=== PATIENT | female | born 1930 | race Caucasian/White ===

== ENCOUNTER → 2016-07-07 | Outpatient (CLI) | payer MEDICARE, OTHER ==
[~2016-07-07] MED LIST: BACITAB3 PO; BRIM1OPD OU; BUPIVACAINE HCL 0.5% 10 ML VIAL As Ordered ONE; CALC25TA PO; CONRAY-43 43% 50ML VIAL (Q9960) As Ordered ONE; DETR2CAP PO; DIOV160T6 PO; ELIQ2.5T PO; LIPI20TA PO; MAGN1TAB25 PO; MICR10CA PO; NORV5TAB PO; PATA2.5S OU; PRIL20CA PO; TENO1TAB4 PO; TRAM50TA2 PO; TYLE325T5 PO; VITMTA PO; XALA0.002 OU; desyrel PO; methylPREDNISolone SUSP 40 MG/ML (DEPO-medrol) VIAL (J1030) As Ordered ONE
--- NOTE | 2016-07-08 17:12 | REP ---
Left tibiotalar injection The procedure was performed under the direct supervision of Dr. Reynoso. The benefits and risks including but not limited to pain infection and bleeding and anaphylaxis were explained to the patient and informed consent was obtained. The left tibiotalar joint space was localized using fluoroscopic guidance. The skin was prepped and draped in a sterile fashion. 1% lidocaine was used as a local anesthetic. Using fluoroscopic guidance a 22-gauge needle was inserted and advanced into the joint. 0.5 ml of Conray 43 was injected to verify placement. 4 ml of a solution containing 2 ml of 0.5% Marcaine and 2 ml of Depo Medrol 40 mg was injected. The needle was then removed. The patient tolerated the procedure well and there were no immediate complications. 3 seconds of fluoro time was utilized for this procedure. Reviewed by KENIA York 07/07/2016 04:11 PSigned by Gonzalo Reynoso MD 07/08/2016 05:03 P
== END ==
LOC: M RADPRO 10:47
PROVIDERS: ATTEND Physician Assistant
DX: M25.572 Pain in left ankle and joints of left foot (principal)
CPT/HCPCS: 20606; 77002; J1030; Q9960

== ENCOUNTER → 2016-10-15 | Outpatient (CLI) | payer MEDICARE, OTHER ==
[~2016-10-15] MED LIST changes: -PRIL20CA PO; +PRIL20CA9 PO
--- NOTE | 2016-10-15 16:42 | REP ---
LEFT ANKLE INJECTION: The procedure was performed under the direct supervision of Dr. Reynoso. The benefits and risks including, but not limited to pain, infection, bleeding and anaphylaxis were explained to the patient and informed consent was obtained. The right tibiotalar joint space was localized using fluoroscopic guidance. The skin was prepped and draped in a sterile fashion. 1% lidocaine was used as a local anesthetic. Using fluoroscopic guidance a 22-gauge needle was inserted and advanced into the joint. 0.5 mL of Conray-43 was injected to verify placement. 4 ml of a solution containing 2 mL of 0.5% Marcaine and 2 mL of Depo-Medrol 40 mg was injected. The needle was then removed. The patient tolerated the procedure well and there were no immediate complications. 2 seconds of fluoroscopy time was utilized for this procedure. Reviewed by KENIA York 10/15/2016 05:08 PEdited and Signed by Gonzalo Reynoso MD 10/16/2016 03:31 P
== END ==
LOC: M RADPRO 08:26
PROVIDERS: ATTEND Orthopaedic Surgery
DX: M25.572 Pain in left ankle and joints of left foot (principal); M19.072 Primary osteoarthritis, left ankle and foot
CPT/HCPCS: 20605; 77002; J1030; Q9960

== ENCOUNTER → 2017-01-21 | Outpatient (CLI) | payer MEDICARE, OTHER ==
[~2017-01-21] MED LIST changes: +BACITAB PO; -BACITAB3 PO; -XALA0.002 OU; +XALA0.007 OU
--- NOTE | 2017-01-21 14:05 | REP ---
LEFT TIBIOTALAR JOINT INJECTION: The procedure was performed under the direct supervision of Dr. Poole. The benefits and risks including but not limited to pain, infection, bleeding, and anaphylaxis were explained to the patient and informed consent was obtained. The left tibiotalar joint space is localized using fluoroscopic guidance. The skin was prepped and draped in a sterile fashion. 1% lidocaine was used as a local anesthetic. Using fluoroscopic guidance, a 22-gauge needle was inserted and advanced into the joint. 0.5 mL of Conray 43 was injected to verify placement. 4 mL of a solution containing 2 mL of 0.5% Marcaine and 2 mL of Depo-Medrol 40 mg was injected. The needle was then removed. The patient tolerated the procedure well and there were no immediate complications. 4 seconds of fluoroscopy time was utilized for this procedure. Reviewed by KENIA York 01/21/2017 04:26 PEdited and Signed by Jeff Poole MD 01/22/2017 08:10 A
== END | disposition home or self-care (01) ==
LOC: M RADPRO 10:45
PROVIDERS: ATTEND Orthopaedic Surgery
DX: M25.579 Pain in unspecified ankle and joints of unspecified foot (principal); M19.90 Unspecified osteoarthritis, unspecified site; M79.672 Pain in left foot
CPT/HCPCS: 20606; 77002; J1030; Q9960

== ENCOUNTER → 2017-05-17 | Outpatient (CLI) | payer MEDICARE, OTHER ==
--- NOTE | 2017-05-17 17:16 | REP ---
LEFT TALOTIBIAL JOINT INJECTION: The procedure was performed under the direct supervision of Dr. Reynoso. The benefits and risks including but not limited to pain, infection, bleeding and anaphylaxis were explained to the patient and informed consent was obtained. The left talotibial joint space was localized using fluoroscopic guidance. The skin was prepped and draped in a sterile fashion. 1% lidocaine was used as a local anesthetic. Using fluoroscopic guidance a 22-gauge needle was inserted and advanced into the joint space. 0. 5 mL of Conray-43 was injected to verify placement. 4 mL of a solution containing 2 mL of 0.5% Marcaine and 2 mL of Depo-Medrol 40 mg was injected. The needle was then removed. The patient tolerated the procedure well and there were no immediate complications. 0.1 minutes fluoroscopy time was utilized for this procedure. Reviewed by KENIA York 05/17/2017 06:10 PSigned by Gonzalo Reynoso MD 05/18/2017 01:19 P
== END ==
LOC: M RADPRO 07:46
PROVIDERS: ATTEND Orthopaedic Surgery
DX: M79.672 Pain in left foot (principal); M25.572 Pain in left ankle and joints of left foot; M19.90 Unspecified osteoarthritis, unspecified site
CPT/HCPCS: 20605; 77002; J1030; Q9960

== ENCOUNTER → 2017-08-10 | Outpatient (CLI) | payer MEDICARE, OTHER ==
[~2017-08-10] MED LIST changes: -BACITAB PO; -BRIM1OPD OU; +BUPIVACAINE HCL 0.5% 10 ML VIAL As Ordered; -BUPIVACAINE HCL 0.5% 10 ML VIAL As Ordered ONE; -CALC25TA PO; +CONRAY-43 43% 50ML VIAL (Q9960) As Ordered; -CONRAY-43 43% 50ML VIAL (Q9960) As Ordered ONE; -DETR2CAP PO; -DIOV160T6 PO; -ELIQ2.5T PO; -LIPI20TA PO; -MAGN1TAB25 PO; -MICR10CA PO; -NORV5TAB PO; -PATA2.5S OU; -PRIL20CA9 PO; -TENO1TAB4 PO; -TRAM50TA2 PO; -TYLE325T5 PO; -VITMTA PO; -XALA0.007 OU; -desyrel PO; +methylPREDNISolone SUSP 40 MG/ML (DEPO-medrol) VIAL (J1030) As Ordered; -methylPREDNISolone SUSP 40 MG/ML (DEPO-medrol) VIAL (J1030) As Ordered ONE
== END ==
LOC: M RADPRO 10:16
DX: M25.572 Pain in left ankle and joints of left foot (principal)
CPT/HCPCS: 20605

== ENCOUNTER → 2017-11-10 | Outpatient (CLI) | payer MEDICARE, OTHER | LOC: M RADPRO 10:07 | DX: M25.572 Pain in left ankle and joints of left foot (principal) | CPT/HCPCS: 20605 ==

== ENCOUNTER → 2018-02-09 | Outpatient (CLI) | payer MEDICARE, OTHER | LOC: M RADPRO 10:43 | DX: M25.572 Pain in left ankle and joints of left foot (principal) | CPT/HCPCS: 20605 ==

== ENCOUNTER → 2018-05-18 | Outpatient (CLI) | payer MEDICARE, OTHER | LOC: M RADPRO 10:13 | DX: M25.572 Pain in left ankle and joints of left foot (principal) | CPT/HCPCS: 20605 ==

== ENCOUNTER → 2018-08-23 | Outpatient (CLI) | payer MEDICARE, OTHER ==
[~2018-08-23] MED LIST changes: +BACITAB PO; +BRIM1OPD OU; -BUPIVACAINE HCL 0.5% 10 ML VIAL As Ordered; +BUPIVACAINE HCL 0.5% 10 ML VIAL As Ordered ONE; +CALC25TA PO; -CONRAY-43 43% 50ML VIAL (Q9960) As Ordered; +CONRAY-43 43% 50ML VIAL (Q9960) As Ordered ONE; +DETR2CAP PO; +DIOV160T6 PO; +ELIQ2.5T PO; +LIPI20TA PO; +MAGN1TAB25 PO; +MICR10CA PO; +NORV5TAB PO; +PATA2.5S OU; +PRIL20CA9 PO; +TENO1TAB4 PO; +TRAM50TA2 PO; +TYLE325T5 PO; +VITMTA PO; +XALA0.007 OU; +desyrel PO; -methylPREDNISolone SUSP 40 MG/ML (DEPO-medrol) VIAL (J1030) As Ordered; +methylPREDNISolone SUSP 40 MG/ML (DEPO-medrol) VIAL (J1030) As Ordered ONE
--- NOTE | 2018-08-23 17:50 | REP ---
LEFT ANKLE INJECTION The procedure was performed under the direct supervision of Dr. Donnelly. The benefits and risks including but not limited to pain infection bleeding and anaphylaxis were explained to the patient and informed consent was obtained. The talotibial joint space was localized using fluoroscopic guidance. The skin was prepped and draped in a sterile fashion. 1% lidocaine was used as a local anesthetic. Using fluoroscopic guidance a 22-gauge needle was inserted and advanced into the joint. 0.5 ml of Conray 43 was injected to verify placement. 4 ml of a solution containing 2 ml of 0.5% Marcaine and 2 ml of Depo-Medrol 40 mg was injected. The needle was then removed. The patient tolerated the procedure well and there were no immediate complications. Less than 6 seconds of fluoroscopy time was utilized for this procedure. Reviewed by KENIA York 08/23/2018 05:31 P Electronically Signed by Lon Donnelly MD 08/23/2018 05:40 P
== END ==
LOC: M RADPRO 09:28
PROVIDERS: ATTEND Orthopaedic Surgery
DX: M25.572 Pain in left ankle and joints of left foot (principal); M19.072 Primary osteoarthritis, left ankle and foot; M79.672 Pain in left foot
CPT/HCPCS: 20605; 77002; J1030; Q9960

== ENCOUNTER → 2018-11-21 | Outpatient (CLI) | payer MEDICARE, OTHER ==
[~2018-11-21] MED LIST changes: +LIDOCAINE 1% MDV 20ML VIAL As Ordered ONE; -MAGN1TAB25 PO; +MAGN1TAB26 PO; +methylPREDNISolone 80MG/ML SUSP 1ML VIAL (J1040) XX ONE; -methylPREDNISolone SUSP 40 MG/ML (DEPO-medrol) VIAL (J1030) As Ordered ONE
--- NOTE | 2018-11-21 18:43 | REP ---
FLUORO GUIDED LEFT ANKLE INJECTION The procedure was performed under the direct supervision of Dr. reynoso. The benefits and risks including but not limited to pain infection bleeding and anaphylaxis were explained to the patient and informed consent was obtained. The left tibiotalar joint was localized using fluoroscopic guidance. The skin was prepped and draped in a sterile fashion. 1% lidocaine was used as a local anesthetic. Using fluoroscopic guidance a 22-gauge needle was inserted and advanced into the joint. 0.5 ml of Conray 43 was injected to verify placement. 3 ml of a solution containing 2 ml of 0.5% Marcaine and 1 ml of Kenalog 80 mg was injected. The needle was then removed. The patient tolerated the procedure well and there were no immediate complications. Less than 6 seconds of fluoroscopy time was utilized for this procedure. Reviewed by KENIA York 11/21/2018 03:38 P Electronically Signed by Gonzalo Reynoso MD 11/21/2018 06:34 P
== END ==
LOC: M RADPRO 10:32
PROVIDERS: ATTEND Orthopaedic Surgery
DX: M25.572 Pain in left ankle and joints of left foot (principal)
CPT/HCPCS: 20605; 77002; Q9960

== ENCOUNTER → 2019-02-21 | Outpatient (CLI) | payer MEDICARE, OTHER ==
[~2019-02-21] MED LIST changes: -LIDOCAINE 1% MDV 20ML VIAL As Ordered ONE; +methylPREDNISolone SUSP 40 MG/ML (DEPO-medrol) VIAL (J1030) As Ordered ONE
--- NOTE | 2019-02-22 09:25 | REP ---
Reason For Exam/Comment: Chronic left ankle pain Procedure: Left ankle arthrocentesis The procedure was performed by KENIA Wright, under the direct supervision of Dr. Reynoso. The benefits and risks including but not limited to pain, infection, bleeding and anaphylaxis were explained to the patient and informed consent was obtained both verbally and written. Directly prior to the start of the procedure, a formal timeout was completed in the procedure room. The left tibiotalar joint was localized using fluoroscopic guidance. The skin was prepped and draped in the usual sterile fashion. 5 mL of 1% lidocaine was used as a local anesthetic. Using fluoroscopic guidance a 22-gauge spinal needle was inserted and advanced to the left tibiotalar joint space . 2 mL of Conray 43 was injected to verify needle placement. A 3 mL solution containing a 2 mL Marcaine 0.5% and 1 ml of Depo-Medrol 80 mg/ml was injected into the joint. The needle was removed and hemostasis was achieved. The patient tolerated the procedure well and there were no immediate complications. 0.1 minutes of fluoroscopy time was utilized for this procedure. Some fluoroscopic images are performed with last image hold technology. These images require no additional radiation. Reviewed by KENIA Izquierdo 02/21/2019 03:14 P Electronically Signed by Gonzalo Reynoso MD 02/22/2019 09:17 A
== END ==
LOC: M RADPRO 09:33
PROVIDERS: ATTEND Orthopaedic Surgery
DX: M25.572 Pain in left ankle and joints of left foot (principal)
CPT/HCPCS: 20605; 77002; Q9960

== ENCOUNTER → 2019-06-09 | Outpatient (CLI) | payer MEDICARE, OTHER ==
[~2019-06-09] MED LIST changes: +methylPREDNISolone 80MG/ML SUSP 1ML VIAL (J1040) As Ordered ONE; -methylPREDNISolone 80MG/ML SUSP 1ML VIAL (J1040) XX ONE; -methylPREDNISolone SUSP 40 MG/ML (DEPO-medrol) VIAL (J1030) As Ordered ONE
--- NOTE | 2019-06-09 15:56 | REP ---
LEFT ANKLE INJECTION The procedure was performed under the direct supervision of Dr. Reynoso. The benefits and risks including but not limited to pain infection bleeding and anaphylaxis were explained to the patient and informed consent was obtained. The left tibiotalar joint space was localized using fluoroscopic guidance. The skin was prepped and draped in a sterile fashion. 1% lidocaine was used as a local anesthetic. Using fluoroscopic guidance a 22-gauge needle was inserted and advanced into the joint. 0.5 ml of Omnipaque-300 was injected to verify placement. 3 ml of a solution containing 2 ml of 0.5% Marcaine and 1 ml of Depo-Medrol in mg injected. The needle was then removed. The patient tolerated the procedure well and there were no immediate complications. Less than 6 seconds of fluoroscopy time was utilized for this procedure. Electronically Signed by KENIA York 06/09/2019 03:20 P Electronically Signed by Gonzalo Reynoso MD 06/09/2019 03:48 P
== END ==
LOC: M RADPRO 11:58
PROVIDERS: ATTEND Orthopaedic Surgery
DX: M25.579 Pain in unspecified ankle and joints of unspecified foot (principal)
CPT/HCPCS: 20605; 77002; J1040; Q9960

== ENCOUNTER → 2019-09-08 | Outpatient (CLI) | payer MEDICARE, OTHER ==
[~2019-09-08] MED LIST changes: +LIDOCAINE 1% MDV 20ML VIAL As Ordered ONE
--- NOTE | 2019-09-08 18:38 | REP ---
LEFT ANKLE INJECTION The procedure was performed under the direct supervision of Dr. Poole. The benefits and risks including but not limited to pain infection bleeding and anaphylaxis were explained to the patient and informed consent was obtained. The left tibiotalar joint space was localized using fluoroscopic guidance. The skin was prepped and draped in a sterile fashion. 1% lidocaine was used as a local anesthetic. Using fluoroscopic guidance a 22-gauge needle was inserted and advanced into the joint. 0.5 ml of Conray 43 was injected to verify placement. 3 ml of a solution containing 2 ml of 0.5% Marcaine and 1 ml of Kenalog 80 mg injected. The needle was then removed. The patient tolerated the procedure well and there were no immediate complications. Less than 6 seconds of fluoroscopy time was utilized for this procedure. Electronically Signed by KENIA York 09/08/2019 04:50 P Electronically Signed by Jeff Poole MD 09/08/2019 06:29 P
== END ==
LOC: M RADPRO 14:20
PROVIDERS: ATTEND Orthopaedic Surgery
DX: M25.572 Pain in left ankle and joints of left foot (principal)
CPT/HCPCS: 20605; 77002; J1040; Q9960

== ENCOUNTER → 2019-12-14 | Outpatient (CLI) | payer MEDICARE, OTHER ==
[~2019-12-14] MED LIST changes: -BUPIVACAINE HCL 0.5% 10 ML VIAL As Ordered ONE; +BUPIVACAINE HCL 0.5% 10ML VIAL As Ordered ONE; -LIDOCAINE 1% MDV 20ML VIAL As Ordered ONE
--- NOTE | 2019-12-14 19:17 | REP ---
LEFT ANKLE INJECTION The procedure was performed under the direct supervision of Dr. Reynoso. The benefits and risks including but not limited to pain infection bleeding and anaphylaxis were explained to the patient and informed consent was obtained. The left tibiotalar joint space was localized using fluoroscopic guidance. The skin was prepped and draped in a sterile fashion. 1% lidocaine was used as a local anesthetic. Using fluoroscopic guidance a 22-gauge needle was inserted and advanced into the joint. 0.5 ml of Conray 43 was injected to verify placement. 3 ml of a solution containing 2 ml of 0.5% Marcaine and 1 ml of Kenalog 80 mg injected. The needle was then removed. The patient tolerated the procedure well and there were no immediate complications. Less than 6 seconds of fluoroscopy time was utilized for this procedure. Electronically Signed by KENIA York 12/14/2019 03:56 P Electronically Signed by Gonzalo Reynoso MD 12/14/2019 07:08 P
== END ==
LOC: M RADPRO 10:59
PROVIDERS: ATTEND Orthopaedic Surgery
DX: M25.579 Pain in unspecified ankle and joints of unspecified foot (principal); M19.90 Unspecified osteoarthritis, unspecified site; M79.672 Pain in left foot
CPT/HCPCS: 20605; 77002; J1040; Q9960

== ENCOUNTER → 2020-03-15 | Outpatient (CLI) | payer MEDICARE, OTHER ==
[~2020-03-15] MED LIST changes: -CONRAY-43 43% 50ML VIAL (Q9960) As Ordered ONE; -methylPREDNISolone 80MG/ML SUSP 1ML VIAL (J1040) As Ordered ONE
--- NOTE | 2020-04-03 09:16 | REP ---
LEFT ANKLE INJECTION The procedure was performed under the direct supervision of Dr. Reynoso. The benefits and risks including, but not limited to pain, infection, bleeding, and anaphylaxis were explained to the patient and informed consent was obtained. The tibiotalar joint space was localized using fluoroscopic guidance. The skin was prepped and draped in a sterile fashion. 1% Lidocaine was used as a local anesthetic. Using fluoroscopic guidance, a 22-gauge needle was inserted and advanced into the joint. 0.5 mL of Isovue-300 was injected to verify placement. 3 mL of a solution containing 2 mL of 0.5% Marcaine and 1 mL of Depo-Medrol 80 mg was injected. The needle was then removed. The patient tolerated the procedure well and there were no immediate complications. Less than 6 seconds fluoroscopy time was utilized for this procedure. [facility]
== END ==
LOC: M RADPRO 10:59
PROVIDERS: ATTEND Orthopaedic Surgery
DX: M25.572 Pain in left ankle and joints of left foot (principal)